=== PATIENT | male | born 1985 | race Asian ===

== ENCOUNTER 2017-05-29 10:52 | Emergency (ER) | payer OTHER ==
[2017-05-29] MEDS: HYDROcodone/APAP 5/325MG 1 TAB TABLET PO (11:49)
== END 2017-05-29 12:15 | disposition home or self-care (01) ==
LOC: ER 10:52
DX: S90.31XA Contusion of right foot, initial encounter (principal); I11.0 Hypertensive heart disease with heart failure; I50.9 Heart failure, unspecified; Q05.9 Spina bifida, unspecified; W22.8XXA Striking against or struck by other objects, initial encounter; Y93.89 Activity, other specified; Y99.8 Other external cause status; Y92.89 Other specified places as the place of occurrence of the external cause
CPT/HCPCS: 73630; 99284

== ENCOUNTER 2017-06-07 11:21 | Inpatient (IN) | payer OTHER ==
[2017-06-07 12:51] LABS: ADD MAN DIFF? NO
[2017-06-07 12:54] LABS: BASO # 0.1 x10^3/uL (0.0-0.2); BASO % 1 % (0-3); EOS # 0.4 x10^3/uL (0.0-0.7); EOS % 6 % (0-3); HEMATOCRIT 42.3 % (39.0-53.0); HEMOGLOBIN 13.8 g/dL (13.0-17.5); LYMPH # 1.1 x10^3/uL (1.0-4.8); LYMPH % 17 % (24-48); MEAN CORPUSCULAR HEMOGLOBIN 30 pg (25-35); MEAN CORPUSCULAR HGB CONC 33 g/dL (31-37); MEAN CORPUSCULAR VOLUME 92 fL (79-100); MONO # 0.5 x10^3/uL (0.0-1.1); MONO % 8 % (0-9); NEUT # 4.4 x10^3uL (1.8-7.7); NEUT % 68 % (31-73); PLATELET COUNT 197 x10^3/uL (140-400); RED BLOOD COUNT 4.61 x10^6/uL (4.30-5.70); RED CELL DISTRIBUTION WIDTH 16.6 % (11.5-14.5); WHITE BLOOD COUNT 6.4 x10^3/uL (4.0-11.0)
[2017-06-07 13:15] LABS: ANION GAP 15 (6-14); BLOOD UREA NITROGEN 31 mg/dL (8-26); BUN/CREATININE RATIO 5 (6-20); CARBON DIOXIDE 24 mmol/L (21-32); CHLORIDE 97 mmol/L (98-107); CREATININE 6.3 mg/dL (0.7-1.3); GFR 10.5; GLUCOSE 102 mg/dL (70-99); POTASSIUM 5.9 mmol/L (3.5-5.1); SODIUM 136 mmol/L (136-145)
[2017-06-07 13:22] LABS: LACTIC ACID 1.7 mmol/L (0.4-2.0)
[2017-06-07] MEDS: PIPERACILLIN/TAZOBACTAM 3.375 GM in IV NORMAL SALINE 50ML 50 ML IV (13:25)
[2017-06-07 13:28] LABS: ALBUMIN 3.7 g/dL (3.4-5.0); ALBUMIN/GLOBULIN RATIO 0.8 (1.0-1.7); ALK PHOS 98 U/L (46-116); ALT (SGPT) 11 U/L (16-63); AST (SGOT) 11 U/L (15-37); C-REACTIVE PROTEIN 68.8 mg/L (0-3.3); TOTAL BILIRUBIN 0.4 mg/dL (0.2-1.0); TOTAL PROTEIN 8.2 g/dL (6.4-8.2)
[2017-06-07] MEDS: VANCOMYCIN 1 GM in IV DEXTROSE 5% 250 ML IV (13:52)
[2017-06-07] MEDS ORDERED: PIPERACILLIN/TAZOBACTAM 3.375 GM in IV NORMAL SALINE 50ML 50 ML IV (14:00)
[2017-06-07 14:04] LABS: SEDIMENTATION RATE 36 (0-15)
[2017-06-07] MEDS: diphenhydrAMINE 50 MG/ML VIAL IVP (15:05)
[2017-06-07] MEDS: SODIUM POLYSTYRENE SULFONATE 15 GM/60 ML ORAL.SUSP. PO ×2 (15:18→17:39)
[2017-06-07] MEDS ORDERED: ONDANSETRON PF 4 MG/2 ML VIAL. IV ×2 (15:30→15:45)
[2017-06-07] MEDS ORDERED: fentaNYL PF VIAL 100 MCG/2 ML VIAL IV (15:30)
[2017-06-07] MEDS ORDERED: DOCUSATE SODIUM 100 MG CAPSULE. PO (15:45)
[2017-06-07] MEDS ORDERED: MORPHINE SULFATE 4 MG/ML DISP.SYRIN. IV (15:45)
[2017-06-07] MEDS ORDERED: ACETAMINOPHEN 325 MG TABLET. PO (15:45)
[2017-06-07] MEDS ORDERED: hydrALAZINE 20 MG/ML VIAL. IVP (15:45)
[2017-06-07] MEDS: SODIUM BICARB ADULT 8.4% 50 MEQ/50 ML DISP.SYRIN. IV (15:54)
[2017-06-07] MEDS: VANCOMYCIN PER PHARMACY MC (15:55)
[2017-06-07 21:03] LABS: ANION GAP 15 (6-14); BLOOD UREA NITROGEN 32 mg/dL (8-26); CALCIUM 8.7 mg/dL (8.5-10.1); CARBON DIOXIDE 24 mmol/L (21-32); CHLORIDE 101 mmol/L (98-107); CREATININE 6.8 mg/dL (0.7-1.3); GFR 9.6; GLUCOSE 103 mg/dL (70-99); POTASSIUM 4.8 mmol/L (3.5-5.1); SODIUM 140 mmol/L (136-145)
[2017-06-07] MEDS: PIPERACILLIN/TAZOBACTAM 2.25 GM in IV NORMAL SALINE 50ML 50 ML IV (22:12)
[2017-06-07] MEDS: HEPARIN PF for SUB-Q USE 5,000 UNIT/0.5 ML VIAL. SQ (22:20)
[2017-06-08 05:06] LABS: ADD MAN DIFF? NO
[2017-06-08] MEDS: PIPERACILLIN/TAZOBACTAM 2.25 GM in IV NORMAL SALINE 50ML 50 ML IV ×3 (05:20→21:50)
[2017-06-08] MEDS: HEPARIN PF for SUB-Q USE 5,000 UNIT/0.5 ML VIAL. SQ ×3 (05:26→21:57)
[2017-06-08 05:34] LABS: ANION GAP 17 (6-14); BLOOD UREA NITROGEN 31 mg/dL (8-26); CALCIUM 8.7 mg/dL (8.5-10.1); CARBON DIOXIDE 23 mmol/L (21-32); CHLORIDE 101 mmol/L (98-107); CREATININE 6.7 mg/dL (0.7-1.3); GFR 9.8; GLUCOSE 66 mg/dL (70-99); SODIUM 141 mmol/L (136-145)
[2017-06-08 05:47] LABS: BASO % 1 % (0-3); EOS # 0.2 x10^3/uL (0.0-0.7); EOS % 4 % (0-3); HEMATOCRIT 39.5 % (39.0-53.0); HEMOGLOBIN 12.9 g/dL (13.0-17.5); LYMPH # 1.1 x10^3/uL (1.0-4.8); LYMPH % 22 % (24-48); MEAN CORPUSCULAR HEMOGLOBIN 30 pg (25-35); MEAN CORPUSCULAR HGB CONC 33 g/dL (31-37); MEAN CORPUSCULAR VOLUME 92 fL (79-100); MONO # 0.5 x10^3/uL (0.0-1.1); MONO % 10 % (0-9); NEUT # 3.3 x10^3uL (1.8-7.7); NEUT % 63 % (31-73); PLATELET COUNT 166 x10^3/uL (140-400); RED BLOOD COUNT 4.29 x10^6/uL (4.30-5.70); RED CELL DISTRIBUTION WIDTH 16.4 % (11.5-14.5); WHITE BLOOD COUNT 5.2 x10^3/uL (4.0-11.0)
[2017-06-08] MEDS: traMADol 50 MG TABLET PO (13:41)
[2017-06-09 00:07] LABS: C DIFF BY PCR Negative (Negative)
[2017-06-09] MEDS: VANCOMYCIN RANDOM LEVEL. MC (05:00)
[2017-06-09] MEDS: PIPERACILLIN/TAZOBACTAM 2.25 GM in IV NORMAL SALINE 50ML 50 ML IV ×3 (05:24→22:13)
[2017-06-09] MEDS: HEPARIN PF for SUB-Q USE 5,000 UNIT/0.5 ML VIAL. SQ ×3 (05:29→22:17)
[2017-06-09] MEDS: VANCOMYCIN PER PHARMACY MC ×2 (10:44→17:14)
[2017-06-09] MEDS ORDERED: IV NORMAL SALINE 1000ML BAG 1,000 ML IV ×2 (14:41)
[2017-06-09] MEDS ORDERED: diphenhydrAMINE 50 MG/ML VIAL IV ×2 (14:45)
[2017-06-09] MEDS ORDERED: ACETAMINOPHEN 500 MG TABLET PO (14:45)
[2017-06-09] MEDS ORDERED: DIALYSIS PATIENT. MC (14:45)
[2017-06-09] MEDS: LACTOBACILLUS RHAMNOSUS GG 1 CAPSULE. PO (20:54)
[2017-06-10 05:10] LABS: ADD MAN DIFF? NO
[2017-06-10 05:24] LABS: BASO % 1 % (0-3); EOS # 0.2 x10^3/uL (0.0-0.7); EOS % 6 % (0-3); HEMATOCRIT 34.7 % (39.0-53.0); HEMOGLOBIN 11.4 g/dL (13.0-17.5); LYMPH # 0.7 x10^3/uL (1.0-4.8); LYMPH % 18 % (24-48); MEAN CORPUSCULAR HEMOGLOBIN 30 pg (25-35); MEAN CORPUSCULAR HGB CONC 33 g/dL (31-37); MEAN CORPUSCULAR VOLUME 91 fL (79-100); MONO # 0.4 x10^3/uL (0.0-1.1); MONO % 11 % (0-9); NEUT # 2.5 x10^3uL (1.8-7.7); NEUT % 65 % (31-73); PLATELET COUNT 152 x10^3/uL (140-400); RED BLOOD COUNT 3.83 x10^6/uL (4.30-5.70); RED CELL DISTRIBUTION WIDTH 15.5 % (11.5-14.5); WHITE BLOOD COUNT 3.8 x10^3/uL (4.0-11.0)
[2017-06-10 06:10] LABS: ALBUMIN 2.7 g/dL (3.4-5.0); ALBUMIN/GLOBULIN RATIO 0.7 (1.0-1.7); ALK PHOS 62 U/L (46-116); ALT (SGPT) 10 U/L (16-63); ANION GAP 11 (6-14); AST (SGOT) 8 U/L (15-37); BLOOD UREA NITROGEN 12 mg/dL (8-26); BUN/CREATININE RATIO 3 (6-20); CALCIUM 8.3 mg/dL (8.5-10.1); CARBON DIOXIDE 29 mmol/L (21-32); CHLORIDE 96 mmol/L (98-107); CREATININE 4.3 mg/dL (0.7-1.3); GFR 16.3; GLUCOSE 85 mg/dL (70-99); POTASSIUM 4.5 mmol/L (3.5-5.1); SODIUM 136 mmol/L (136-145); TOTAL BILIRUBIN 0.6 mg/dL (0.2-1.0); TOTAL PROTEIN 6.8 g/dL (6.4-8.2)
[2017-06-10] MEDS: PIPERACILLIN/TAZOBACTAM 2.25 GM in IV NORMAL SALINE 50ML 50 ML IV (06:23)
[2017-06-10] MEDS: HEPARIN PF for SUB-Q USE 5,000 UNIT/0.5 ML VIAL. SQ ×3 (06:26→21:30)
[2017-06-10] MEDS: LACTOBACILLUS RHAMNOSUS GG 1 CAPSULE. PO ×2 (07:16→21:26)
[2017-06-10] MEDS: AMOXICILLIN/K CLAV 500/125MG TABLET. PO (15:22)
[2017-06-10] MEDS: traMADol 50 MG TABLET PO (21:26)
[2017-06-11] MEDS ORDERED: VANCOMYCIN RANDOM LEVEL. MC (06:00)
[2017-06-11] MEDS: HEPARIN PF for SUB-Q USE 5,000 UNIT/0.5 ML VIAL. SQ ×2 (06:14→13:14)
[2017-06-11] MEDS: LACTOBACILLUS RHAMNOSUS GG 1 CAPSULE. PO (08:38)
[2017-06-11] MEDS: AMOXICILLIN/K CLAV 500/125MG TABLET. PO (08:38)
[2017-06-11] MEDS ORDERED: LIDOCAINE 2% JELLY 6ML IN APPLICATOR. (12:00)
[2017-06-11 12:26] LABS: ADD MAN DIFF? NO
[2017-06-11 12:30] LABS: BASO % 1 % (0-3); EOS # 0.1 x10^3/uL (0.0-0.7); EOS % 4 % (0-3); HEMATOCRIT 37.9 % (39.0-53.0); HEMOGLOBIN 12.5 g/dL (13.0-17.5); LYMPH # 0.7 x10^3/uL (1.0-4.8); LYMPH % 21 % (24-48); MEAN CORPUSCULAR HEMOGLOBIN 30 pg (25-35); MEAN CORPUSCULAR HGB CONC 33 g/dL (31-37); MEAN CORPUSCULAR VOLUME 90 fL (79-100); MONO # 0.3 x10^3/uL (0.0-1.1); MONO % 10 % (0-9); NEUT # 2.2 x10^3uL (1.8-7.7); NEUT % 65 % (31-73); PLATELET COUNT 140 x10^3/uL (140-400); RED CELL DISTRIBUTION WIDTH 15.8 % (11.5-14.5); WHITE BLOOD COUNT 3.4 x10^3/uL (4.0-11.0)
[2017-06-11] MEDS ORDERED: IV NORMAL SALINE 1000ML BAG 1,000 ML IV ×2 (14:39)
[2017-06-11] MEDS ORDERED: diphenhydrAMINE 50 MG/ML VIAL IV ×2 (14:45)
[2017-06-11] MEDS ORDERED: DIALYSIS PATIENT. MC (14:45)
== END 2017-06-11 19:30 | disposition home health service (06) | DRG 682 ==
LOC: 5 SOUTH 16:17 → ER 11:21 → 5 SOUTH 14:48
PROC: 5A1D70Z Performance of Urinary Filtration, Intermittent, Less than 6 Hours Per Day (ICD-10-PCS; principal; 2017-06-09)
PROC: 0H9MXZZ Drainage of Right Foot Skin, External Approach (ICD-10-PCS; 2017-06-10)
PROC: 5A1D70Z Performance of Urinary Filtration, Intermittent, Less than 6 Hours Per Day (ICD-10-PCS; 2017-06-11)
DX: I12.0 Hypertensive chronic kidney disease with stage 5 chronic kidney disease or end stage renal disease (principal); N18.6 End stage renal disease; E43 Unspecified severe protein-calorie malnutrition; G82.20 Paraplegia, unspecified; L97.519 Non-pressure chronic ulcer of other part of right foot with unspecified severity; E87.5 Hyperkalemia; L03.115 Cellulitis of right lower limb; N25.81 Secondary hyperparathyroidism of renal origin; Z68.1 Body mass index [BMI] 19.9 or less, adult; D63.1 Anemia in chronic kidney disease; D72.819 Decreased white blood cell count, unspecified; M21.40 Flat foot [pes planus] (acquired), unspecified foot; Q05.9 Spina bifida, unspecified; Z82.49 Family history of ischemic heart disease and other diseases of the circulatory system; Z99.2 Dependence on renal dialysis
CPT/HCPCS: 36415; 72192; 73630; 73721; 80048; 80053; 80202; 83605; 84145; 85025; 85651; 86140; 87040; 87071; 87075; 87205; 87324; 93005; 96365; 96367; 96375; 97162-GP; 97166-GO; 99285; 99285-25; J1200; J2543; J3370

== ENCOUNTER → 2017-06-25 | Outpatient (CLI) | payer OTHER | END | disposition home or self-care (01) | LOC: PMGWOUND 08:16 | DX: L89.614 Pressure ulcer of right heel, stage 4 (principal); I13.2 Hypertensive heart and chronic kidney disease with heart failure and with stage 5 chronic kidney disease, or end stage renal disease; N18.6 End stage renal disease; I50.9 Heart failure, unspecified; N25.81 Secondary hyperparathyroidism of renal origin; Z99.2 Dependence on renal dialysis | CPT/HCPCS: 11043 ==

== ENCOUNTER → 2017-07-10 | Outpatient (CLI) | payer OTHER | END | disposition home or self-care (01) | LOC: PMGWOUND 08:50 | DX: L89.614 Pressure ulcer of right heel, stage 4 (principal); I13.2 Hypertensive heart and chronic kidney disease with heart failure and with stage 5 chronic kidney disease, or end stage renal disease; N18.6 End stage renal disease; I50.9 Heart failure, unspecified; N25.81 Secondary hyperparathyroidism of renal origin; Q05.9 Spina bifida, unspecified; M24.571 Contracture, right ankle; M24.572 Contracture, left ankle; Z99.2 Dependence on renal dialysis | CPT/HCPCS: 97597 ==

== ENCOUNTER → 2017-07-23 | Outpatient (CLI) | payer OTHER | END | disposition home or self-care (01) | LOC: PMGWOUND 12:00 | DX: L89.614 Pressure ulcer of right heel, stage 4 (principal); I13.2 Hypertensive heart and chronic kidney disease with heart failure and with stage 5 chronic kidney disease, or end stage renal disease; N18.6 End stage renal disease; I50.9 Heart failure, unspecified; N25.81 Secondary hyperparathyroidism of renal origin; Q05.9 Spina bifida, unspecified; L84 Corns and callosities; M24.571 Contracture, right ankle; M24.572 Contracture, left ankle; Z99.2 Dependence on renal dialysis | CPT/HCPCS: 11042; 97597 ==

== ENCOUNTER → 2017-08-13 | Outpatient (CLI) | payer OTHER | END | disposition home or self-care (01) | LOC: PMGWOUND 11:45 | DX: L89.614 Pressure ulcer of right heel, stage 4 (principal); I13.2 Hypertensive heart and chronic kidney disease with heart failure and with stage 5 chronic kidney disease, or end stage renal disease; N18.6 End stage renal disease; I50.9 Heart failure, unspecified; N25.81 Secondary hyperparathyroidism of renal origin; Q05.9 Spina bifida, unspecified; L84 Corns and callosities; M24.571 Contracture, right ankle; M24.572 Contracture, left ankle; Z99.2 Dependence on renal dialysis | CPT/HCPCS: 11042 ==

== ENCOUNTER 2017-08-29 08:12 | Inpatient (IN) | payer OTHER ==
[2017-08-29 08:59] LABS: ADD MAN DIFF? NO
[2017-08-29 09:02] LABS: BASO # 0.1 x10^3/uL (0.0-0.2); BASO % 1 % (0-3); EOS # 0.1 x10^3/uL (0.0-0.7); EOS % 3 % (0-3); HEMATOCRIT 43.6 % (39.0-53.0); HEMOGLOBIN 14.5 g/dL (13.0-17.5); LYMPH % 22 % (24-48); MEAN CORPUSCULAR HEMOGLOBIN 31 pg (25-35); MEAN CORPUSCULAR HGB CONC 33 g/dL (31-37); MEAN CORPUSCULAR VOLUME 94 fL (79-100); MONO # 0.3 x10^3/uL (0.0-1.1); MONO % 8 % (0-9); NEUT % 67 % (31-73); PLATELET COUNT 167 x10^3/uL (140-400); RED BLOOD COUNT 4.66 x10^6/uL (4.30-5.70); RED CELL DISTRIBUTION WIDTH 15.5 % (11.5-14.5); WHITE BLOOD COUNT 4.5 x10^3/uL (4.0-11.0)
[2017-08-29 09:11] LABS: ANION GAP 11 (6-14); BLOOD UREA NITROGEN 28 mg/dL (8-26); BUN/CREATININE RATIO 5 (6-20); CALCIUM 10.1 mg/dL (8.5-10.1); CARBON DIOXIDE 22 mmol/L (21-32); CHLORIDE 102 mmol/L (98-107); CREATININE 5.9 mg/dL (0.7-1.3); GFR 11.2; GLUCOSE 101 mg/dL (70-99); SODIUM 135 mmol/L (136-145)
[2017-08-29 09:13] LABS: POTASSIUM 5.4 mmol/L (3.5-5.1)
[2017-08-29 09:18] LABS: ALBUMIN/GLOBULIN RATIO 0.9 (1.0-1.7); ALK PHOS 101 U/L (46-116); ALT (SGPT) 13 U/L (16-63); AST (SGOT) 25 U/L (15-37); TOTAL BILIRUBIN 0.5 mg/dL (0.2-1.0); TOTAL PROTEIN 8.3 g/dL (6.4-8.2)
[2017-08-29 09:19] LABS: TROPONINI < 0.017 ng/mL (0.000-0.055)
[2017-08-29 09:27] LABS: CKMB MASS 0.8 ng/mL (0.0-3.6); CREATINE KINASE 48 U/L (39-308)
[2017-08-29] MEDS ORDERED: fentaNYL PF VIAL 100 MCG/2 ML VIAL IV (10:00)
[2017-08-29] MEDS ORDERED: ACETAMINOPHEN 325 MG TABLET. PO (10:00)
[2017-08-29] MEDS ORDERED: ONDANSETRON PF 4 MG/2 ML VIAL. IV ×2 (10:00→12:00)
[2017-08-29] MEDS ORDERED: traMADol 50 MG TABLET PO (12:00)
[2017-08-29] MEDS ORDERED: DOCUSATE SODIUM 100 MG CAPSULE. PO (12:00)
[2017-08-29] MEDS ORDERED: hydrALAZINE 20 MG/ML VIAL. IVP (13:15)
[2017-08-29 13:49] LABS: CHOLESTEROL 131 mg/dL (0-200); HDLC 66 mg/dL (40-60); LDLC 56 mg/dL (0-100); NON-HDL CHOLESTEROL 65 mg/dL (0-129); TRIGLYCERIDES 43 mg/dL (0-150); VLDLC 9 mg/dL (0-40)
[2017-08-29] MEDS ORDERED: DIALYSIS PATIENT. MC ×2 (16:00)
[2017-08-29 17:05] LABS: TROPONINI < 0.017 ng/mL (0.000-0.055)
[2017-08-29] MEDS: ACETAMINOPHEN 325 MG TABLET. PO (21:25)
[2017-08-30 05:21] LABS: ADD MAN DIFF? NO
[2017-08-30 05:45] LABS: BASO % 1 % (0-3); EOS # 0.1 x10^3/uL (0.0-0.7); EOS % 2 % (0-3); HEMATOCRIT 41.8 % (39.0-53.0); HEMOGLOBIN 13.8 g/dL (13.0-17.5); LYMPH # 0.9 x10^3/uL (1.0-4.8); LYMPH % 23 % (24-48); MEAN CORPUSCULAR HEMOGLOBIN 31 pg (25-35); MEAN CORPUSCULAR HGB CONC 33 g/dL (31-37); MEAN CORPUSCULAR VOLUME 94 fL (79-100); MONO # 0.4 x10^3/uL (0.0-1.1); MONO % 11 % (0-9); NEUT # 2.4 x10^3uL (1.8-7.7); NEUT % 64 % (31-73); PLATELET COUNT 141 x10^3/uL (140-400); RED BLOOD COUNT 4.46 x10^6/uL (4.30-5.70); RED CELL DISTRIBUTION WIDTH 15.1 % (11.5-14.5); WHITE BLOOD COUNT 3.8 x10^3/uL (4.0-11.0)
[2017-08-30 05:56] LABS: D-DIMER 0.29 ug/mlFEU (0.00-0.50)
[2017-08-30 06:02] LABS: ALBUMIN 3.5 g/dL (3.4-5.0); ALBUMIN/GLOBULIN RATIO 0.9 (1.0-1.7); ALK PHOS 91 U/L (46-116); ALT (SGPT) 10 U/L (16-63); ANION GAP 6 (6-14); AST (SGOT) 15 U/L (15-37); BLOOD UREA NITROGEN 15 mg/dL (8-26); BUN/CREATININE RATIO 3 (6-20); CALCIUM 9.4 mg/dL (8.5-10.1); CARBON DIOXIDE 31 mmol/L (21-32); CHLORIDE 101 mmol/L (98-107); CREATININE 4.4 mg/dL (0.7-1.3); GFR 15.8; GLUCOSE 95 mg/dL (70-99); POTASSIUM 4.1 mmol/L (3.5-5.1); SODIUM 138 mmol/L (136-145); TOTAL BILIRUBIN 0.6 mg/dL (0.2-1.0); TOTAL PROTEIN 7.2 g/dL (6.4-8.2)
[2017-08-30] MEDS: amLODIPine BESYLATE 5 MG TABLET PO (20:55)
== END 2017-08-30 21:10 | disposition home health service (06) | DRG 313 ==
LOC: 6 SOUTH 10:57 → ER 08:12 → 6 SOUTH 09:59
PROC: 5A1D70Z Performance of Urinary Filtration, Intermittent, Less than 6 Hours Per Day (ICD-10-PCS; principal; 2017-08-29)
DX: R07.89 Other chest pain (principal); N18.6 End stage renal disease; G82.20 Paraplegia, unspecified; I12.0 Hypertensive chronic kidney disease with stage 5 chronic kidney disease or end stage renal disease; E87.5 Hyperkalemia; D63.1 Anemia in chronic kidney disease; Z99.2 Dependence on renal dialysis; Q05.9 Spina bifida, unspecified; Z82.49 Family history of ischemic heart disease and other diseases of the circulatory system; Z99.3 Dependence on wheelchair
CPT/HCPCS: 36415; 71045; 80053; 80061; 82553; 84484; 85025; 85379; 93005; 93306; 99285; 99285-25